=== PATIENT | male | born 1950 | race Two or more races ===

== ENCOUNTER 2017-11-21 09:27 | Emergency (ER) | payer MEDICARE ==
[~2017-11-21] VITALS: Ht 177.8 cm; Wt 120.2 kg
[~2017-11-21 09:27] MED LIST: ATOR40TA59 PO; LISI-130 PO; METF10007 PO; METO25TA4 PO
[2017-11-21 10:39] LABS: BASO # 0.2 x10^3/uL (0.0-0.2); BASO % 2 % (0-3); EOS # 0.1 x10^3/uL (0.0-0.7); EOS % 2 % (0-3); HEMATOCRIT 42.9 % (39.0-53.0); HEMOGLOBIN 14.6 g/dL (13.0-17.5); LYMPH # 1.3 x10^3/uL (1.0-4.8); LYMPH % 19 % (24-48); MEAN CORPUSCULAR HEMOGLOBIN 33 pg (25-35); MEAN CORPUSCULAR HGB CONC 34 g/dL (31-37); MEAN CORPUSCULAR VOLUME 96 fL (79-100); MONO # 0.8 x10^3/uL (0.0-1.1); MONO % 13 % (0-9); NEUT # 4.3 x10^3uL (1.8-7.7); NEUT % 64 % (31-73); PLATELET COUNT 358 x10^3/uL (140-400); RED BLOOD COUNT 4.46 x10^6/uL (4.30-5.70); RED CELL DISTRIBUTION WIDTH 14.1 % (11.5-14.5); WHITE BLOOD COUNT 6.7 x10^3/uL (4.0-11.0)
[2017-11-21 10:49] LABS: CALCIUM 9.5 mg/dL (8.5-10.1); CREATININE 0.9 mg/dL (0.7-1.3); GFR 83.9; POTASSIUM 4.2 mmol/L (3.5-5.1)
--- NOTE | 2017-11-21 10:53 | RAD ---
CT of the head without contrast, 11/21/2017: HISTORY: Blurry vision There is mild cerebral atrophy. The ventricles are within normal limits in size. There is no shift of the midline structures. There is no evidence of acute intracranial hemorrhage or mass effect. IMPRESSION: No acute intracranial abnormality is detected. Electronically signed by: Piotr Krishnamurthy MD (11/21/2017 10:49 AM) [facility]
[2017-11-21 10:55] LABS: ALBUMIN 3.4 g/dL (3.4-5.0); ALBUMIN/GLOBULIN RATIO 0.8 (1.0-1.7); MAGNESIUM 1.9 mg/dL (1.8-2.4); TOTAL BILIRUBIN 0.7 mg/dL (0.2-1.0); TOTAL PROTEIN 7.9 g/dL (6.4-8.2)
--- NOTE | 2017-11-21 10:58 | RAD ---
Portable chest, 11/21/2017: HISTORY: Blurred vision Recent stent placements Comparison is made to a study from 11/05/2017. The patient positioning is lordotic. The heart is at the upper limits of normal in size. The pulmonary vascularity is normal. There appears to be minimal bibasilar linear atelectasis. No pulmonary consolidation is seen. There is no evidence of pleural fluid. IMPRESSION: Minimal basilar atelectasis. Electronically signed by: Piotr Krishnamurthy MD (11/21/2017 10:55 AM) [facility]
[2017-11-21 11:01] LABS: BILIRUBIN,URINE NEGATIVE (NEG); CLARITY,URINE CLEAR; COLOR,URINE YELLOW; NITRITE,URINE NEGATIVE (NEG); PH,URINE 5.5; PROTEIN,URINE NEGATIVE (NEG-TRACE); UROBILINOGEN,URINE 0.2 mg/dL (0.2 mg/dL)
[2017-11-21 11:03] LABS: CREATINE KINASE 46 U/L (39-308)
[2017-11-21 11:05] LABS: BARBITURATES NEG (NEG); BENZODIAZEPINES NEG (NEG); CANNABINOIDS NEG (NEG); COCAINE NEG (NEG); METHADONE NEG (NEG); OPIATES NEG (NEG); PHENCYCLIDINE NEG (NEG)
[2017-11-21 11:08] LABS: AMPHETAMINE/METHAMPHETAMINE NEG (NEG)
[2017-11-21 11:12] LABS: BACTERIA,URINE 0 /HPF (0-FEW); RBC,URINE 0 /HPF (0-2); SQUAMOUS EPITHELIAL CELL,UR OCC /LPF; WBC,URINE OCC /HPF (0-4)
--- NOTE | 2017-11-21 11:16 | EKG ---
[facility] [address] [place] [address] Test Date: 2017-11-21 Test Time: 10:04:28 Pat Name: ARACELY KOENIG Department: Room: Gender: M Sales Executive Insurance: : [id number] Requested By: BUBBA BALDERAS Order Number: [id number] Reading MD: Agustin Wang Measurements Intervals [place] Rate: 59 P: 33 [place]: 146 QRS: 23 QRSD: 94 T: -14 QT: 436 QTc: 436 Interpretive Statements SINUS RHYTHM LOW LIMB LEAD VOLTAGE T ABNORMALITY IN ANTEROLATERAL LEADS INFEROLATERAL LEADS ABNORMAL ECG Electronically Signed On 11-21-2017 11:18:22 CDT by Agustin Wang
--- NOTE | 2017-11-21 12:51 | RAD ---
Carotid Doppler ultrasound INDICATION: blurry vision. COMPARISON: None are available TECHNIQUE: Color, grayscale and doppler ultrasound images obtained of the carotid system bilaterally. Percent stenosis is estimated using criteria that correlates with NASCET methodology. FINDINGS: Peak systolic velocities are as follows in cm/s: Right Carotid System: CCA PSV: 75 ICA PSV: 55 ICA EDV: 12 ECA PSV: 119 ICA/CCA Ratio 0.74 Right vertebral artery is patent with normal direction of flow. No high-grade luminal narrowing or occlusion is identified on grayscale or color images. Left Carotid System: CCA PSV: 84 ICA PSV: 55 ICA EDV: 20 ECA PSV: 127 ICA/CCA Ratio 0.66 Left vertebral artery is patent with normal direction of flow. No high-grade luminal narrowing or occlusion is identified on grayscale or color images. IMPRESSION: No evidence of hemodynamically significant stenosis. Electronically signed by: Matthew Randolph MD (11/21/2017 12:47 PM) [facility]
[2017-11-21] MEDS ORDERED: FLUORESCEIN OPHTH TEST STRIP. OS ONE (13:30)
[2017-11-21] MEDS ORDERED: TETRACAINE 0.5% OPHTH SOLUTION 4ML BOTTLE. OS ONE (13:30)
[2017-11-21 13:45] VITALS: BP 138/76
--- NOTE | 2017-11-21 14:16 | PHYS DOC ---
Past Medical History Past Medical History: CAD, Diabetes-Type II, High Cholesterol, Hypertension Past Surgical History: Other Additional Past Surgical Histo: cardiac cath with stents, Alcohol Use: None Drug Use: None Adult General Chief Complaint Chief Complaint: BLURRED/DOUBLE VISION HPI HPI Patient is a 66 year old male with history of CAD, hypertension, high cholesterol, diabetes type 2, who presents today complaining of blurry vision for 10 days. Patient states he was discharged from the hospital 10 days ago. He states he was admitted for 10 days for chest pain prior to discharge, he states he had 2 stents placed. Patient states his is had blurry vision intermittently since he was discharged. He states [place] and does not have a primary care doctor here. He states he has not followed up with anyone since discharge. He states he was sent home with aspirin 325 mg daily plus his BP medicines and diabetes medications. Patient denies any injury. Denies any headache. Denies any vision loss. Review of Systems Review of Systems Constitutional: Denies fever or chills [] Eyes: Blurry vision to the left eye. Denies redness, or eye pain [] HENT: Denies nasal congestion or sore throat [] Respiratory: Denies cough or shortness of breath [] Cardiovascular: No additional information not addressed in HPI [] GI: Denies abdominal pain, nausea, vomiting, bloody stools or diarrhea [] : Denies dysuria or hematuria [] Musculoskeletal: Denies back pain or joint pain [] Integument: Denies rash or skin lesions [] Neurologic: Denies headache, focal weakness or sensory changes [] [] All other systems were reviewed and found to be within normal limits, except as documented in this note. Current Medications Current Medications Current Medications Medications (Trade) Dose Ordered Sig/Palak Start Time Stop Time Status Last Admin Dose Admin Fluorescein Sodium (Ful-Jahaira) 1 strip 1X ONCE 11/21/17 13:30 11/21/17 13:31 DC 11/21/17 13:37 1 STRIP Tetracaine HCl (Tetracaine) 1 drop 1X ONCE 11/21/17 13:30 11/21/17 13:31 DC 11/21/17 13:37 1 DROP Allergies Allergies Allergies Coded Allergies Type Severity Reaction Last Updated Verified No Known Drug Allergies 10/31/17 No Physical Exam Physical Exam Constitutional: Well developed, well nourished, no acute distress, non-toxic appearance. [] HENT: Normocephalic, atraumatic, bilateral external ears normal, oropharynx moist, no oral exudates, nose normal. Inner chambers are intact. Eyes: PERRLA, EOMI, conjunctiva normal, no discharge. [] Left eye was numbed with tetracaine, pressures were checked which were normal. The eye was stained with fluorescein, there is no corneal abrasion. Neck: Normal range of motion, no tenderness, supple, no stridor. [] Cardiovascular:Heart rate regular rhythm, no murmur [] Lungs & Thorax: Bilateral breath sounds clear to auscultation [] Abdomen: Bowel sounds normal, soft, no tenderness, no masses, no pulsatile masses. [] Skin: Warm, dry, no erythema, no rash. [] Back: No tenderness, no CVA tenderness. [] Extremities: No tenderness, no cyanosis, no clubbing, ROM intact, no edema. [] Neurologic: Alert and oriented X 3, normal motor function, normal sensory function, no focal deficits noted. Cranial nerves II through XII intact Psychologic: Affect normal, judgement normal, mood normal. [] Current Patient Data Vital Signs Vital Signs Date Time Temp Pulse Resp B/P (MAP) Pulse Ox O2 Delivery O2 Flow Rate FiO2 11/21/17 09:43 98.6 59 20 161/87 (111) 95 Room Air 98.6 Lab Values Laboratory Tests Test 11/21/17 10:15 11/21/17 10:45 White Blood Count 6.7 x10^3/uL (4.0-11.0) Red Blood Count 4.46 x10^6/uL (4.30-5.70) Hemoglobin 14.6 g/dL (13.0-17.5) Hematocrit 42.9 % (39.0-53.0) Mean Corpuscular Volume 96 fL (79-100) Mean Corpuscular Hemoglobin 33 pg (25-35) Mean Corpuscular Hemoglobin Concent 34 g/dL (31-37) Red Cell Distribution Width 14.1 % (11.5-14.5) Platelet Count 358 x10^3/uL (140-400) Neutrophils (%) (Auto) 64 % (31-73) Lymphocytes (%) (Auto) 19 % (24-48) L Monocytes (%) (Auto) 13 % (0-9) H Eosinophils (%) (Auto) 2 % (0-3) Basophils (%) (Auto) 2 % (0-3) Neutrophils # (Auto) 4.3 x10^3uL (1.8-7.7) Lymphocytes # (Auto) 1.3 x10^3/uL (1.0-4.8) Monocytes # (Auto) 0.8 x10^3/uL (0.0-1.1) Eosinophils # (Auto) 0.1 x10^3/uL (0.0-0.7) Basophils # (Auto) 0.2 x10^3/uL (0.0-0.2) Sodium Level 141 mmol/L (136-145) Potassium Level 4.2 mmol/L (3.5-5.1) Chloride Level 103 mmol/L (98-107) Carbon Dioxide Level 30 mmol/L (21-32) Anion Gap 8 (6-14) Blood Urea Nitrogen 13 mg/dL (8-26) Creatinine 0.9 mg/dL (0.7-1.3) Estimated GFR (Cockcroft-Gault) 83.9 BUN/Creatinine Ratio 14 (6-20) Glucose Level 137 mg/dL (70-99) H Calcium Level 9.5 mg/dL (8.5-10.1) Magnesium Level 1.9 mg/dL (1.8-2.4) Total Bilirubin 0.7 mg/dL (0.2-1.0) Aspartate Amino Transferase (AST) 20 U/L (15-37) Alanine Aminotransferase (ALT) 22 U/L (16-63) Alkaline Phosphatase 122 U/L (46-116) H Creatine Kinase 46 U/L (39-308) Creatine Kinase MB (Mass) 0.8 ng/mL (0.0-3.6) Creatine Kinase MB Relative Index % (0-4) Troponin I Quantitative < 0.017 ng/mL (0.000-0.055) CL-Iam-A-Type Natriuretic Peptide 1077 pg/mL (0-124) H Total Protein 7.9 g/dL (6.4-8.2) Albumin 3.4 g/dL (3.4-5.0) Albumin/Globulin Ratio 0.8 (1.0-1.7) L Urine Collection Type Unknown Urine Color Yellow Urine Clarity Clear Urine pH 5.5 Urine Specific Mica 1.015 Urine Protein Negative mg/dL (NEG-TRACE) Urine Glucose (UA) Negative mg/dL (NEG) Urine Ketones (Stick) Negative mg/dL (NEG) Urine Blood Negative (NEG) Urine Nitrite Negative (NEG) Urine Bilirubin Negative (NEG) Urine Urobilinogen Dipstick 0.2 mg/dL (0.2 mg/dL) Urine Leukocyte Esterase Negative (NEG) Urine RBC 0 /HPF (0-2) Urine WBC Occ /HPF (0-4) Urine Squamous Epithelial Cells Occ /LPF Urine Bacteria 0 /HPF (0-FEW) Urine Mucus Slight /LPF Urine Opiates Screen Neg (NEG) Urine Methadone Screen Neg (NEG) Urine Barbiturates Neg (NEG) Urine Phencyclidine Screen Neg (NEG) Urine Amphetamine/Methamphetamine Neg (NEG) Urine Benzodiazepines Screen Neg (NEG) Urine Cocaine Screen Neg (NEG) Urine Cannabinoids Screen Neg (NEG) Urine Ethyl Alcohol Neg (NEG) Laboratory Tests 11/21/17 10:15 Laboratory Tests 11/21/17 10:15 EKG EKG 10:[address] Dunn sinus rate them heart rate 59 no STEMI[] Radiology/Procedures Radiology/Procedures []PROCEDURE: DOPPLER CAROTID BILAT Carotid Doppler ultrasound INDICATION: blurry vision. COMPARISON: None are available TECHNIQUE: Color, grayscale and doppler ultrasound images obtained of the carotid system bilaterally. Percent stenosis is estimated using criteria that correlates with NASCET methodology. FINDINGS: Peak systolic velocities are as follows in cm/s: Right Carotid System: CCA PSV: 75 ICA PSV: 55 ICA EDV: 12 ECA PSV: 119 ICA/CCA Ratio 0.74 Right vertebral artery is patent with normal direction of flow. No high-grade luminal narrowing or occlusion is identified on grayscale or color images. Left Carotid System: CCA PSV: 84 ICA PSV: 55 ICA EDV: 20 ECA PSV: 127 ICA/CCA Ratio 0.66 Left vertebral artery is patent with normal direction of flow. No high-grade luminal narrowing or occlusion is identified on grayscale or color images. IMPRESSION: No evidence of hemodynamically significant stenosis. Electronically signed by: Matthew Randolph MD (11/21/2017 12:47 PM) [facility] DICTATED and SIGNED BY: MATTHEW RANDOLPH MD DATE: 11/21/17 1243 PROCEDURE: PORTABLE CHEST 1V Portable chest, 11/21/2017: HISTORY: Blurred vision Recent stent placements Comparison is made to a study from 11/05/2017. The patient positioning is lordotic. The heart is at the upper limits of normal in size. The pulmonary vascularity is normal. There appears to be minimal bibasilar linear atelectasis. No pulmonary consolidation is seen. There is no evidence of pleural fluid. IMPRESSION: Minimal basilar atelectasis. Electronically signed by: Piotr Krishnamurthy MD (11/21/2017 10:55 AM) [facility] DICTATED and SIGNED BY: PIOTR KRISHNAMURTHY MD DATE: 11/21/17 1053 PROCEDURE: CT HEAD WO CONTRAST CT of the head without contrast, 11/21/2017: HISTORY: Blurry vision There is mild cerebral atrophy. The ventricles are within normal limits in size. There is no shift of the midline structures. There is no evidence of acute intracranial hemorrhage or mass effect. IMPRESSION: No acute intracranial abnormality is detected. Electronically signed by: Piotr Krishnamurthy MD (11/21/2017 10:49 AM) [facility] DICTATED and SIGNED BY: PIOTR KRISHNAMURTHY MD DATE: 11/21/17 1045 Course & Med Decision Making Course & Med Decision Making Pertinent Labs and Imaging studies reviewed. (See chart for details) This is a 66-year-old male patient presenting to the ED today complaining of blurry vision to the left eye that has been going on for 10 days. Patient was discharged from the hospital 10 days ago after being admitted for 10 days for chest pain. They placed 2 stents in his heart. Patient's lab work is negative for any acute findings, chest x-ray and CT of the head were negative for any acute findings. See visual acuity documented by nursing staff This patient had a negative MRI of his brain on 11/08/2017. He also had an arteriogram which was negative during his hospitalization. 11:[address] Sampson, he requested we do carotid Dopplers, if they're negative patient needs to be discharged and follow-up with an photographer lithographic. Carotid Dopplers are negative. Patient was discharged to home, provided photographer lithographic for follow-up. Also provided primary care doctor for follow-up. Provided return precautions and discharged in stable condition. Dragon Disclaimer Dragon Disclaimer This electronic medical record was generated, in whole or in part, using a voice recognition dictation system. Departure Departure Impression: Primary Impression: Blurry vision, left eye Disposition: HOME, SELF-CARE Condition: STABLE Referrals: NO PCP (PCP) CHUCK SIMS MD Call his office today and set up a follow-up appointment for your blury vision. CARLOS GUTIERREZ MD call today and set up a follow appointment Patient Instructions: Eye - Blurred Vision Additional Instructions: You were evaluated in the emergency room for blurry vision to the left eye. Contact the provided photographer lithographic today and set up a follow-up appointment. We also gave you a primary care doctors and product design engineer. Contact their office today and set up a follow-up appointment. Continue taking your medications at home. BUBBA BALDERAS APRN Nov 21, 2017 14:16
== END 2017-11-21 14:30 | disposition home or self-care (01) ==
LOC: ER 09:27
DX: H53.8 Other visual disturbances (principal); E78.00 Pure hypercholesterolemia, unspecified; I10 Essential (primary) hypertension; E11.9 Type 2 diabetes mellitus without complications; I25.10 Atherosclerotic heart disease of native coronary artery without angina pectoris; Z95.5 Presence of coronary angioplasty implant and graft
CPT/HCPCS: 36415; 70450; 71045; 80053; 80307; 81001; 82553; 83735; 83880; 84484; 85025; 93005; 93880; 99285-25; G0479

== ENCOUNTER 2018-04-04 13:30 | Emergency (ER) | payer MEDICARE, OTHER ==
[~2018-04-04] VITALS: Ht 167.6 cm; Wt 120.2 kg
[2018-04-04 13:35] VITALS: BP 149/67
[2018-04-04] MEDS ORDERED: LISI-130 PO (13:51)
[2018-04-04] MEDS ORDERED: METF10007 PO (13:51)
[2018-04-04] MEDS ORDERED: METO25TA4 PO (13:51)
--- NOTE | 2018-04-04 13:53 | PHYS DOC ---
Past Medical History Past Medical History: CAD, Diabetes-Type II, High Cholesterol, Hypertension Past Surgical History: Other Additional Past Surgical Histo: cardiac cath with stents, Alcohol Use: None Drug Use: None Adult General Chief Complaint Chief Complaint: MEDICATION REFILL [facility] HPI Patient is a 67 year old male who presents with a need for medication refills. He has been unable to see a PCP and has run out of his medications. Review of Systems Review of Systems Constitutional: Denies fever or chills [] Eyes: Denies change in visual acuity, redness, or eye pain [] HENT: Denies nasal congestion or sore throat [] Respiratory: Denies cough or shortness of breath [] Cardiovascular: No additional information not addressed in HPI [] GI: Denies abdominal pain, nausea, vomiting, bloody stools or diarrhea [] : Denies dysuria or hematuria [] Musculoskeletal: Denies back pain or joint pain [] Integument: Denies rash or skin lesions [] Neurologic: Denies headache, focal weakness or sensory changes [] Endocrine: Denies polyuria or polydipsia [] All other systems were reviewed and found to be within normal limits, except as documented in this note. Allergies Allergies Allergies Coded Allergies Type Severity Reaction Last Updated Verified No Known Drug Allergies 10/31/17 No Physical Exam Physical Exam Constitutional: Well developed, well nourished, no acute distress, non-toxic appearance. [] HENT: Normocephalic, atraumatic, bilateral external ears normal, oropharynx moist, no oral exudates, nose normal. [] Eyes: PERRLA, EOMI, conjunctiva normal, no discharge. [] Neck: Normal range of motion, no tenderness, supple, no stridor. [] Cardiovascular:Heart rate regular rhythm, no murmur [] Lungs & Thorax: Bilateral breath sounds clear to auscultation [] Abdomen: Bowel sounds normal, soft, no tenderness, no masses, no pulsatile masses. [] Skin: Warm, dry, no erythema, no rash. [] Back: No tenderness, no CVA tenderness. [] Extremities: No tenderness, no cyanosis, no clubbing, ROM intact, no edema. [] Neurologic: Alert and oriented X 3, normal motor function, normal sensory function, no focal deficits noted. [] Psychologic: Affect normal, judgement normal, mood normal. [] EKG EKG [] Radiology/Procedures Radiology/Procedures [] Course & Med Decision Making Course & Med Decision Making Pertinent Labs and Imaging studies reviewed. (See chart for details) [] Dragchris Disclaimer Dragon Disclaimer This electronic medical record was generated, in whole or in part, using a voice recognition dictation system. Departure Departure Impression: Primary Impression: Encounter for medication refill Disposition: HOME, SELF-CARE Condition: STABLE Referrals: NO PCP (PCP) CARLOS GUTIERREZ MD Patient Instructions: Diabetes, FAQs, Hypertension Additional Instructions: Take medications as directed. Follow-up with a primary care provider to manage or chronic diseases. Scripts Lisinopril (LISINOPRIL) 40 Mg Tablet 1 TAB PO DAILY for hypertension, #30 TAB 5 Refills Prov: AMMON PETTIT APRN 04/04/18 Metoprolol Tartrate (METOPROLOL TARTRATE) 25 Mg Tablet 1 TAB PO BID for hypertension, #60 TAB 5 Refills Prov: AMMON PETTIT APRN 04/04/18 Metformin Hcl (METFORMIN HCL) 1,000 Mg Tablet 1000 MG PO BIDWMEALS for hyperglycemia, #60 TAB 3 Refills Prov: AMMON PETTIT APRN 04/04/18 AMMON PETTIT APRN Apr 04, 2018 13:53
== END 2018-04-04 14:20 | disposition home or self-care (01) ==
LOC: ER 13:30
DX: E11.9 Type 2 diabetes mellitus without complications (principal); I10 Essential (primary) hypertension; I25.10 Atherosclerotic heart disease of native coronary artery without angina pectoris; E78.00 Pure hypercholesterolemia, unspecified; Z76.0 Encounter for issue of repeat prescription; Z95.9 Presence of cardiac and vascular implant and graft, unspecified
CPT/HCPCS: 99283

== ENCOUNTER 2018-09-26 10:11 | Emergency (ER) | payer MEDICARE ==
[~2018-09-26] VITALS: Ht 177.8 cm; Wt 106.6 kg
[2018-09-26 10:50] VITALS: BP 162/97
[2018-09-26] MEDS ORDERED: HYDR25TA PO (11:38)
[2018-09-26] MEDS ORDERED: TRIA15CR3 TP (11:38)
[2018-09-26] MEDS ORDERED: FAMO20TA5 PO (11:38)
--- NOTE | 2018-09-26 11:38 | PHYS DOC ---
Past Medical History Past Medical History: CAD, Diabetes-Type II, High Cholesterol, Hypertension Past Surgical History: Other Additional Past Surgical Histo: cardiac cath with stents Alcohol Use: None Drug Use: None Adult General Chief Complaint Chief Complaint: SKIN RASH/ABSCESS HPI HPI Patient is a 67 year old male with history of diabetes type 2, hypertension, high cholesterol, CAD, who presents today with a pruritic rash that began one week ago while mowing, patient states he got bit by some bugs. He states he has been trying [id number] medications with no relief. Review of Systems Review of Systems Constitutional: Denies fever or chills [] Musculoskeletal: Denies back pain or joint pain [] Integument: Reports pruritic rash Neurologic: Denies headache, focal weakness or sensory changes [] All other systems were reviewed and found to be within normal limits, except as documented in this note. Allergies Allergies Allergies Coded Allergies Type Severity Reaction Last Updated Verified No Known Drug Allergies 10/31/17 No Physical Exam Physical Exam Constitutional: Well developed, well nourished, no acute distress, non-toxic appearance. [] Skin: Warm, dry, bilateral upper extremities with small amount of erythematous papular rash. Similar rash noted on the left neck and the right lower abdomen. Back: No tenderness, no CVA tenderness. [] Extremities: No tenderness, no cyanosis, no clubbing, ROM intact, no edema. [] Neurologic: Alert and oriented X 3, normal motor function, normal sensory function, no focal deficits noted. [] Psychologic: Affect normal, judgement normal, mood normal. [] Current Patient Data Vital Signs Vital Signs Date Time Temp Pulse Resp B/P (MAP) Pulse Ox O2 Delivery O2 Flow Rate FiO2 09/26/18 10:50 97.8 70 16 162/97 (118) 98 Room Air 97.8 EKG EKG [] Radiology/Procedures Radiology/Procedures [] Course & Med Decision Making Course & Med Decision Making Pertinent Labs and Imaging studies reviewed. (See chart for details) This is a 67-year-old male patient who presents to the ED today with a rash stemming from insect bite ago while mowing. Unknown what insect bit him. D/c on triamcinolone cream, hydroxyzine and famotidine. F/u with PCP in one week. Matt Disclaimer Dragon Disclaimer This electronic medical record was generated, in whole or in part, using a voice recognition dictation system. Departure Departure Impression: Primary Impression: Insect bite Disposition: HOME, SELF-CARE Condition: STABLE Referrals: ABHISHEK AVIAL MD (PCP) follow up in one week Patient Instructions: Insect Bite, [id number] Additional Instructions: You were evaluated in the emergency room for insect bite rash please use the medication prescribed as ordered. Follow-up with your doctor in 2 weeks as needed. Scripts Famotidine (FAMOTIDINE) 20 Mg Tablet 20 MG PO DAILY, #7 TAB Prov: BUBBA BALDERAS APRN 09/26/18 Triamcinolone Acetonide (TRIAMCINOLONE ACETONIDE 0.1% CREAM) 15 Gm Cream..g. 1 JENNA TP BID, #1 TUBE Prov: BUBBA BALDERAS APRN 09/26/18 Hydroxyzine Hcl (HYDROXYZINE HCL) 25 Mg Tablet 1 TAB PO TID, #30 TAB Prov: BUBBA BALDERAS APRN 09/26/18 Problem Qualifiers Primary Impression: Insect bite Encounter type: initial encounter Site of insect bite: abdominal wall Qualified Codes: S30.861A - Insect bite (nonvenomous) of abdominal wall, initial encounter; W57.XXXA - Bitten or stung by nonvenomous insect and other nonvenomous arthropods, initial encounter BUBBA BALDERAS APRN Sep 26, 2018 11:38
== END 2018-09-26 12:10 | disposition home or self-care (01) ==
LOC: ER 10:11
DX: S30.861A Insect bite (nonvenomous) of abdominal wall, initial encounter (principal); E11.9 Type 2 diabetes mellitus without complications; E78.00 Pure hypercholesterolemia, unspecified; I10 Essential (primary) hypertension; I25.10 Atherosclerotic heart disease of native coronary artery without angina pectoris; Z95.5 Presence of coronary angioplasty implant and graft; W57.XXXA Bitten or stung by nonvenomous insect and other nonvenomous arthropods, initial encounter; Y93.89 Activity, other specified; Y92.89 Other specified places as the place of occurrence of the external cause; Y99.8 Other external cause status
CPT/HCPCS: 96374; 99283; 99285-25

== ENCOUNTER 2019-06-11 12:38 | Emergency (ER) | payer MEDICARE ==
[~2019-06-11] VITALS: Ht 177.8 cm; Wt 106.8 kg
[~2019-06-11 12:38] MED LIST changes: +FAMO20TA5 PO; +HYDR25TA PO; +TRIA15CR3 TP
[2019-06-11 13:14] VITALS: BP 136/79
[2019-06-11] MEDS ORDERED: PRED20TA PO (14:22)
[2019-06-11] MEDS ORDERED: HYDR25TA PO (14:22)
[2019-06-11] MEDS ORDERED: FAMO20TA5 PO (14:22)
--- NOTE | 2019-06-11 14:22 | PHYS DOC ---
Past Medical History Past Medical History: CAD, Diabetes-Type II, High Cholesterol, Hypertension Past Surgical History: Other Additional Past Surgical Histo: cardiac cath with stents Smoking Status: Former Smoker Alcohol Use: None Drug Use: None General Adult EDM: Chief Complaint: SKIN RASH/ABSCESS HPI: HPI: Patient is a 68 year old male, with a history of type 2 diabetes, high blood pressure, and coronary artery disease who presents to the emergency department with complaints of a red, itchy rash to his forehead and around both of his eyes for the last 3 days. Patient states that the symptoms began after working in his yard. He denies any vision changes, drainage, or discharge from his eyes. Patient denies any shortness of breath, cough, fever, wheezing, nausea, vomiting, or headache. He currently denies any pain. Review of Systems: Review of Systems: Constitutional: Denies fever or chills. [] Eyes: Denies change in visual acuity; see HPI [] HENT: Denies nasal congestion or sore throat. [] Respiratory: Denies cough or shortness of breath. [] Cardiovascular: Denies chest pain or edema. [] GI: Denies abdominal pain, nausea, vomiting, or diarrhea. [] Musculoskeletal: Denies back pain or joint pain. [] Integument: See HPI Neurologic: Denies headache, focal weakness or sensory changes. [] Endocrine: Denies polyuria or polydipsia. [] Lymphatic: Denies swollen glands. [] Psychiatric: Denies depression or anxiety. [] Heart Score: Risk Factors: Risk Factors: DM, Current or recent (<one month) smoker, HTN, HLP, family history of CAD, obesity. Risk Scores: Score 0 - 3: 2.5% MACE over next 6 weeks - Discharge Home Score 4 - 6: 20.3% MACE over next 6 weeks - Admit for Clinical Observation Score 7 - 10: 72.7% MACE over next 6 weeks - Early Invasive Strategies Allergies: Allergies: Allergies Coded Allergies Type Severity Reaction Last Updated Verified No Known Drug Allergies 10/31/17 No Physical Exam: PE: Constitutional: Well developed, well nourished, no acute distress, non-toxic appearance, obese. [] HENT: Normocephalic, atraumatic, bilateral external ears normal, oropharynx moist, no oral exudates, nose normal. [] Eyes: PERRLA, EOMI, conjunctiva normal, no discharge; mild erythema and 1+ edema noted to bilateral periorbital areas and eyelids consistent with contact dermatitis. [] Neck: Normal range of motion, no stridor. [] Cardiovascular:Heart rate regular rhythm Lungs & Thorax: Respirations even and unlabored, no retractions, no respiratory distress Skin: Warm, dry; patchy, erythemic rash noted to forehead and periorbital areas consistent with contact dermatitis, no vesicles or pustules present Extremities: No cyanosis, ROM intact Neurologic: Alert and oriented X 3, no focal deficits noted. [] Psychologic: Affect normal, judgement normal, mood normal. [] Current Patient Data: Vital Signs: Vital Signs Date Time Temp Pulse Resp B/P (MAP) Pulse Ox O2 Delivery O2 Flow Rate FiO2 06/11/19 13:14 98.0 81 16 136/79 (98) 97 Room Air 98.0 EKG: EKG: [] Radiology/Procedures: Radiology/Procedures: [] Course & Med Decision Making: Course & Med Decision Making Pertinent Labs and Imaging studies reviewed. (See chart for details) Patient is a 68-year-old male who presents to the emergency department with complaints of a rash to his forehead and around his eyes for the last 3 days. Patient stated that the symptoms began after doing yard work. He denied any vision changes or drainage from his eyes. Patient reported itching. He states he is a type II diabetic and his blood sugar typically runs in the 120s 130s. Rash is consistent with contact dermatitis. Will prescribe famotidine, hydroxyzine, and a prednisone taper. Advised the patient of increase in blood sugar due to steroid use. Patient encouraged to keep track of his blood sugar and follow-up with his primary care doctor in 1 to 2 days for recheck. Return to ER symptoms worsen, or fever develops. Patient verbalized an understanding of home care, medications, follow-up, and return to ED instructions and was in agreement with the plan of care. [] Dragon Disclaimer: Dragon Disclaimer: This electronic medical record was generated, in whole or in part, using a voice recognition dictation system. Departure Departure Impression: Primary Impression: Acute contact dermatitis Disposition: HOME, SELF-CARE Condition: STABLE Referrals: ABHISHEK AVILA MD (PCP) Patient Instructions: Contact Dermatitis, [id number] Additional Instructions: Fill prescription(s) and use as directed. Might apply a cool washcloth to the area for comfort. Please be aware that the steroids prescribed will cause an elevation in your blood sugar. Follow-up with your primary care doctor in the next 1 to 2 days for recheck. Return to the ER if symptoms worsen or you develop difficulty breathing. Scripts Prednisone (PREDNISONE) 20 Mg Tablet 1 TAB PO UD for 12 Days, #15 TAB 2 tabs by mouth days 1,2,3 then 1.5 tabs by mouth days 4,5,6 then 1 tab by mouth days 7,8,9 then 0.5 tab by mouth day 10,11,12 Prov: DEMETRIUS TOBIN APRN 06/11/19 Hydroxyzine Hcl (HYDROXYZINE HCL) 25 Mg Tablet 1 TAB PO TID PRN for ITCHING, #30 TAB 0 Refills Prov: DEMETRIUS TOBIN APRN 06/11/19 Famotidine (FAMOTIDINE) 20 Mg Tablet 20 MG PO HS for 7 Days, #7 TAB 0 Refills Prov: DEMETRIUS TOBIN APRN 06/11/19 DEMETRIUS TOBIN APRN Jun 11, 2019 14:22
== END 2019-06-11 14:39 | disposition home or self-care (01) ==
LOC: ER 12:38
DX: L25.9 Unspecified contact dermatitis, unspecified cause (principal); R21 Rash and other nonspecific skin eruption; E11.9 Type 2 diabetes mellitus without complications; I11.9 Hypertensive heart disease without heart failure; E78.00 Pure hypercholesterolemia, unspecified; Z98.890 Other specified postprocedural states; Z87.891 Personal history of nicotine dependence
CPT/HCPCS: 99283